=== PATIENT | male | born 1945 | race Caucasian/White ===

== ENCOUNTER 2024-04-18 19:48 | Observation (INO) | payer MEDICARE, SELFPAY ==
[2024-04-18] VITALS (7 sets, daily range): BP systolic 87–154; BP diastolic 61–108; PULSE 105–112; BMI 29.2
--- NOTE | 2024-04-18 16:03 | ED.GENMED ---
History of Present Illness
General
Chief Complaint: Dizziness
Source: patient and ambulance crew
Exam Limitations: none
Time Seen by Provider: 04/18/24 15:56
Nursing documentation reviewed up to this point in time: agreed with
History of Present Illness
History of Present Illness:
78-year-old male presents emergency department complaining of feeling lightheaded and collapsing. He states he did not lose consciousness. He was waiting for a bus near [facility]. States he has not eaten in about a week. He is
trying to lose weight.
Past History
Past History
ED Past Medical History: HTN and Psychiatric (Bipolar)
ED Past Surgical History: Other (Right parotidectomy)
Social History
Tobacco: Former smoker
Alcohol: None
Drug: None
Personal: Single
Living: alone
Review of Systems
Review of Systems
Allergies reviewed?: Yes
All Other Systems: Not applicable
Constitutional: Reports no symptoms
EENT: Reports no symptoms
Respiratory: Reports no symptoms
Cardiac: Reports syncope; Denies chest pain
ABD/GI: Reports no symptoms
: Reports no symptoms
Musculoskeletal: Reports no symptoms
Skin: Reports no symptoms
Neurological: Reports no symptoms
Endocrine: Reports no symptoms
Hematologic/Lymphatic: Reports no symptoms
Psychiatric: Reports no symptoms
Phy Exam
Physical Exam
Physical Exam:
Physical Exam
General: no apparent distress, not acutely ill
Neck: supple. no meningeal signs. normal posterior pharynx
Heart: s1/s2 regular rate and rhythm, no murmur. equal radial
pulses.
HEENT: Pupils equal round reactive to light, EOMI
Lungs: no acute respiratory distress. clear bilaterally
Abdomen: normal bowel sounds. not tender. no CVAT
Neuro: alert and oriented. no focal neurological deficits cranial nerves II through XII intact
Skin: no rash
Psychiatric: well kept. interactive and cooperative
Extremities: no edema. no calf tenderness. negative homans. good distal pulses
Course
Orders/Labs/Results
Orders:
Orders
04/18/24 15:58
Cardiac Monitoring- Treatment ONCE
Vital Signs As Directed
Frequency: Other
Weight As Directed
Frequency: Once
Comment: ZERO STRETCHER SCALE FOR ACCURATE WEIGHT
04/18/24 16:03
EKG [Electrocardiogram (*1)] Urgent
Reason for Study: Vertigo / Dizzy
EKG- Treatment ONCE
04/18/24 16:15
Complete Blood Count/With Diff Urgent
Comprehensive Metabolic Panel Urgent
Troponin I Urgent
04/18/24 16:57
0.9% Sodium Chloride 1000 ml [Nss] 1,000 ml IV BOLUS
04/18/24 19:32
Admit/Transfer Patient As Directed
Co-Sign Provider:
Level of Care: Observation services
Assign to:: Telemetry
Physician / Group: [email or web address]
Diagnosis: syncope, GLORIA, dehydration , intentional fasting
Reason for Telemetry: Syncope
Date to Stop Telemetry: 04/20/24
Time to Stop Telemetry: 11:00
04/18/24 19:33
Code Status As Directed
Resuscitation Status: Full Code
04/18/24 20:08
0.9% Sodium Chloride 1000 ml [Nss] 1,000 ml IV 120 mls/hr
Bisacodyl [Dulcolax] 10 mg RECTAL [id number] PRN
Dextrose 50%-Water [Dextrose 50% Syringe] 12.5 grams IV [id number] PRN
Docusate W/Senna [Senokot-S] 1 tablet PO BIDPRN PRN
Glucagon [GlucaGen] 1 mg IM PRN PRN
Polyethylene Glycol Powder [Miralax] 17 grams PO DAILYPRN PRN
04/18/24 20:08
Activity As Directed
Activity Level: As Tolerated
Bedside Glucose Monitoring As Directed
Frequency: AC&HS
Additional Instructions:: Change to q6h if pt on TPN, tube feeding or not eating
Intake/ Output As Directed
Frequency: Per unit guidelines
Orthostatic Vital Signs As Directed
Orthostatic VS Frequency: Daily
Comment: times 1
Pneumatic Compression Sleeves As Directed
Type: Knee high
Vital Signs As Directed
Frequency: Per unit guidelines
DX Deep Vein Thrombosis Video Routine
04/19/24 Breakfast
Regular
At Your Request: Limited Participation
Does patient need a safe tray?: No
Basic Metabolic Panel IN AM
Glycohemoglobin (HgbA1c) IN AM
04/20/24 11:00
DC Protocol for Telemetry ONCE
Abnormal Lab Results
04/18/24
16:15
WBC 13.8 H 10^3/uL
(4.8-10.8)
MPV 10.8 H fL
(7.4-10.4)
Abs Immat Gran (auto) 0.1 H 10^3/uL
(0-0.05)
Absolute Neuts (auto) 10.9 H 10^3/uL
(1.4-6.5)
Absolute Monos (auto) 0.9 H 10^3/uL
(0.1-0.6)
Immature Gran % 0.7 H %
(0-0.5)
Neutrophils % 78.7 H %
(42.2-75.2)
Lymphocytes % 12.8 L %
(20.5-51.1)
Carbon Dioxide 20 L mmol/L
(22-30)
BUN 29 H mg/dl
(9-20)
Creatinine 2.1 H mg/dL
(0.7-1.3)
Glucose 130 H mg/dl
(70-99)
04/18/24 16:15
04/18/24 16:15
Vital Signs
Initial and Last Documented VS:
Initial Vital Signs
Temp Pulse Resp BP
97.7 F 99 18 87/61
04/18/24 16:11 04/18/24 16:11 04/18/24 16:11 04/18/24 16:11
Last Documented Vital Signs
Temp Pulse Resp BP Pulse Ox
97.5 F 101 20 154/90 97
04/18/24 20:22 04/18/24 19:30 04/18/24 20:22 04/18/24 19:00 04/18/24 20:22
MDM/Problems Addressed
Differential Diagnosis Includes:
Dysrhythmia, hypovolemia, heat injury
MDM/Problems Addressed:
78-year-old male with acute renal failure, syncope.
Chronic conditions affecting care: HTN
Acute Exacerbation and/or Progression of Chronic Illness: HTN
*Pulse Oximetry
Patient hypoxic: no
*EKG
Interpreted by ED Provider?: Yes
EKG Intrepretation Date: 04/18/24
EKG Intrepretation Time: 16:04
Interpretation: normal
Comparison EKG: no comparison EKG present
Heart Rate: 100
Rate: normal
Rhythm: sinus
[place]: normal axis
Interval: normal interval
QRS Pattern: normal QRS
Ischemia: no ischemia
*Hair Dresser Interpretation
Rate: normal
Interpretation: normal
Heart Rate: 94
Rhythm: sinus
*Critical Care Note
Total Time (30-74mins, 75-104mins- exclusive of procedures): Not Applicable
Patient Management
Social determinants of health affecting care: Living situation
Discussion with other providers: Hospitalist
Escalation/DeEscalation of care consider admission/obs:
admit indicated
ED Attending Note
-
Portions of this chart may have been created with voice recognition software.� Occasional wrong word or��sound alike� substitutions may have occurred due to the inherent limitations of voice recognition software.
Discharge Plan
Departure
Patient Disposition: Admit
Date of Disposition: 04/18/24
Time of Disposition: 18:39
Admit to: Telemetry
Presentation/result/management discussed w/ accepting MD/DO: Hospitalist
Patient with high blood pressure during this ER visit?: Yes
Condition: Good
Discharge Problem:
Syncope, Acute renal failure, Hypovolemia
Interventions
Interventions:
*Risk Screen - Suicide Last Done: 04/18/24 17:12
*General Assessment Last Done: 04/18/24 17:12
*Neglect/Abuse Screening Last Done: 04/18/24 17:12
ED- Fall Risk Assessment Last Done: 04/18/24 17:12
*ED COVID-19 Vaccine History Last Done: 04/18/24 17:12
*Nursing Disposition Last Done: 04/18/24 20:01
ED- Neurological Assessment Last Done: 04/18/24 17:12
ED- Cardiac Assessment Last Done: 04/18/24 17:12
Discharge Date and Time
Discharge Date/Time: 04/18/24 20:01
[2024-04-18 16:37] LABS: % Basophils 0.8 % (0-2); % Eosinophils 0.6 % (0-6); % Immature Granulocytes 0.7 % (0-0.5); % Lymphocytes 12.8 % (20.5-51.1); % Monocytes 6.4 % (1.7-9.3); % Neutrophils 78.7 % (42.2-75.2); Absolute Basophils 0.1 10^3/uL (0-0.2); Absolute Eosinophils 0.1 10^3/uL (0-0.7); Absolute Immature Granulocytes 0.1 10^3/uL (0-0.05); Absolute Lymphocytes 1.8 10^3/uL (1.2-3.4); Absolute Monocytes 0.9 10^3/uL (0.1-0.6); Absolute Neutrophils 10.9 10^3/uL (1.4-6.5); Mean Corp Hgb Conc. 34.9 g/dL (33.0-37.0); Mean Corpuscular Hgb 29.8 pg (27.0-31.0); Mean Corpuscular Volume 85.3 fL (80.0-94.0); Mean Platelet Volume 10.8 fL (7.4-10.4); Nucleated Red Blood Cells % 0 % (-); Platelet Count 344 10^3/uL (130-400); Red Blood Cell Count 5.04 10^6/uL (4.70-6.10); Red Cell Dist. Width 13.3 % (11.5-14.5); White Blood Cell Count 13.8 10^3/uL (4.8-10.8)
[2024-04-18 17:00] LABS: Troponin I < 0.012 ng/ml
[2024-04-18 17:02] LABS: AST (SGOT) 25 U/L (17-59); Albumin 4.4 g/dl (3.5-5.0); Blood Urea Nitrogen 29 mg/dl (9-20); Calcium 9.6 mg/dl (8.4-10.2); Carbon Dioxide 20 mmol/L (22-30); Glucose 130 mg/dl (70-99); Potassium 4.3 mmol/L (3.5-5.1); Total Protein 7.3 g/dl (6.3-8.2); eGFR 31.43
[2024-04-18] MEDS: NSS 1000 IV ×2 (17:11→20:53)
[2024-04-18 17:12] LABS: ALT (SGPT) 17 U/L (0-50); Alkaline Phosphatase 52 U/L (38-126); Chloride 102 mmol/L (98-107); Sodium 136 mmol/L (135-145)
--- NOTE | 2024-04-18 19:28 | HPS.HSE ---
Family Physician
-
Family Physician: Jarrell Shahid
Chief Complaint
-
passed out
History of Present Illness
8M HX Bipolar disorder, HTN seen at ER
Evaluation of dizziness and syncope
- acute onset
- Lightheadedness with standing
- almost passed out denied passing out
- Reports intentional fasting for 1 week to loose wt
- BG [employer] FELLOW 150
Per recodrs;
had syncope at [facility]
Denied trauma
lower himself to the ground when he felt dizzy
Medical History
Past Medical History
Past Medical History: Reports HTN and Psychiatric (bipolar)
Past Surgical History: Reports None
Social History
Tobacco: Former Smoker
Alcohol: None
Personal: Single
Family History
Family History: Not pertinent
Allergies / Home Medications
Allergies reflects when Allergies were last updated in [employer].
Home Medications with original date entered in [employer]
Allergy/Medication List:
Allergies
Allergy/AdvReac Type Severity Reaction Status Date / Time
Sulfa (Sulfonamide Allergy convulsions Verified 08/22/22 11:57
Antibiotics)
Home Medications
aspirin 81 mg tablet,delayed release (Hoa Low Dose Aspirin) 81 mg PO DAILY 08/15/15
hbwcnoty-voy-xngxe acid 0.4 mg-lycopene 300 mcg-lutein 250 mcg tablet (Centrum Silver) 1 tab PO DAILY 08/15/15
bacitracin zinc 500 unit/gram topical ointment 0 applic topical TID ##0 08/23/15
cefuroxime axetil 500 mg tablet 500 mg PO BID #14 tabs 08/23/15
prednisone 10 mg tablet 10 mg PO DAILY #21 tabs 08/23/15
Review of Systems
-
Constitutional: Reports No Symptoms
EENT: Reports No Symptoms
Respiratory: Reports No Symptoms
Cardiac: Reports No Symptoms
Abdomen/GI: Reports No Symptoms
: Reports No Symptoms
Musculoskeletal: Reports No Symptoms
Skin: Reports No Symptoms
Neurological: Reports See HPI, Dizzy and Other (syncope )
Endocrine: Reports No Symptoms
Hematologic/Lymphatic: Reports No Symptoms
Psych: Reports No Symptoms
Physical Exam
Vital Signs
Vital Signs
Temp Pulse Resp BP Pulse Ox
97.7 F 103 15 154/90 96
04/18/24 16:11 04/18/24 19:00 04/18/24 19:00 04/18/24 19:00 04/18/24 19:00
Physical Exam
General: Well Developed and No Apparent Distress
HEENT: NormoCephalic and Moist mucous membranes
Respiratory: Clear; No Wheezes, Rales or Rhonchi
Cardiac: S1/S2 and Regular Rhythm
Breast: Deferred by me
GI: Soft, Non Tender, Non Distended and Normal Bowel Sounds
Genito-urinary: Deferred by me
Musculoskeletal: No Edema
Skin: Warm and Dry
Neuro: AO x 3
Psych: Calm
Laboratory Results
-
04/18/24 16:15
04/18/24 16:15
Laboratory Results
Total Bilirubin 1.0 mg/dl (0.2-1.3) 04/18/24 16:15
AST 25 U/L (17-59) 04/18/24 16:15
ALT 17 U/L (0-50) 04/18/24 16:15
Alkaline Phosphatase 52 U/L (38-126) 04/18/24 16:15
Troponin I < 0.012 ng/ml 04/18/24 16:15
Data Reviewed
-
Medical Tests (Nuc Med, Echo, EKG etc): Report Reviewed by me
Lab Data: Labs Reviewed by me
Impression/Plan
-
Reviewed VS: Afebrile tachycardic 100s BP 87/61 --> 155/90 RR 15 POx 96
Data
WCC 13.8
CO2 20
BUN 29
Cr 2.1- baseline 1.6
eGFR 31
BG 130
NEG TPNI
EKG
NORMAL SINUS RHYTHM
NORMAL ECG
WHEN COMPARED WITH ECG OF 22-AUG-2022 11:59,
NO SIGNIFICANT CHANGE WAS FOUND
No PRIOR hospitalist admission:
ASSESSMENT & PLAN
GLORIA due to dehydration and hypovolemia from intentional fasting for few days
Syncope due to significant ortho hypotension
Prior HX Cr 1.6 - ? CKD or recurrent GLORIA due to fasting
- monitor BG , Hypoglycemic protocol PRN
- Nl EKG, NEG TPNI
- BG [employer] FELLOW 150 , at ER 130
- IVF
- f/u postural VSS
- Trend BMP daily
- fall precaution
Essential HTN
- Pending Rx reconciliation
HX Bipolar disorder
- Pending Rx reconciliation
DVT Px: SCD
Code: full
Obs TLM
--- NOTE | 2024-04-18 20:53 | PTCARENOTE ---
Receive pt from ER. Pt alert oriented X3, cooperative and pleasant. Pt assisted X1 to bed, steady. Pt oriented to the room, call bay within reach. Pt denies lightheaded, SOB, chest pain or dizziness. Pt is on NSR with tachycardia on telemonitor.
VSS (T=97.5, ZF=328, RR=20, JF=064/91, SpO2=97% on RA). IVFs infusing as per order. Will continue to monitor the pt.
[2024-04-18 21:09] LABS: Glucose - Point of Care 114 mg/dl (70-99)
[2024-04-19 03:25] VITALS: BP 145/86
[2024-04-19] MEDS: NSS 1000 IV (05:05)
[2024-04-19 06:04] LABS: Blood Urea Nitrogen 31 mg/dl (9-20); Calcium 8.9 mg/dl (8.4-10.2); Carbon Dioxide 23 mmol/L (22-30); Chloride 107 mmol/L (98-107); Estimated Creatinine Clearance 44 ml/min; Glucose 89 mg/dl (70-99); Potassium 4.5 mmol/L (3.5-5.1); Sodium 137 mmol/L (135-145); eGFR 47.06
[2024-04-19 07:13] LABS: Glucose - Point of Care 97 mg/dl (70-99)
[2024-04-19 07:30] VITALS: BP 150/89
[2024-04-19 08:32] VITALS: BP 162/91; BP 171/91; BP 178/91; PULSE 101; PULSE 103; PULSE 104
[2024-04-19 08:32] LABS: % Basophils 0.5 % (0-2); % Eosinophils 0.7 % (0-6); % Immature Granulocytes 0.3 % (0-0.5); % Monocytes 8.6 % (1.7-9.3); % Neutrophils 72.9 % (42.2-75.2); Absolute Basophils 0.1 10^3/uL (0-0.2); Absolute Eosinophils 0.1 10^3/uL (0-0.7); Absolute Neutrophils 8.5 10^3/uL (1.4-6.5); Hemoglobin 13.7 g/dL (13.0-18.0); Mean Corp Hgb Conc. 35.1 g/dL (33.0-37.0); Mean Corpuscular Hgb 30.1 pg (27.0-31.0); Mean Corpuscular Volume 85.7 fL (80.0-94.0); Mean Platelet Volume 11.2 fL (7.4-10.4); Nucleated Red Blood Cells % 0 % (-); Platelet Count 301 10^3/uL (130-400); Red Blood Cell Count 4.55 10^6/uL (4.70-6.10); Red Cell Dist. Width 13.6 % (11.5-14.5); White Blood Cell Count 11.7 10^3/uL (4.8-10.8)
--- NOTE | 2024-04-19 10:12 | W.PN.HOSP.TC ---
Addendum entered and electronically signed by Sergio Ledesma MD 04/19/24 11:14:
Per RN med rec is accurate, patient is currently not taking any meds for bipolar
Addendum entered and electronically signed by Sergio Ledesma MD 04/19/24 11:12:
Patient is currently doing better. Denies any complaints. Will discharge patient home
Time of discharge 36 minutes
Original Note:
Today's Communication/Plan
-
monitor vitals
see plan
now appears back to baseline
creatinine improving
Patient to get repeat BMP with primary care outpatient
Possible discharge today
Assessment / Plan
Assessment / Plan
General: Well Developed and No Apparent Distress
HEENT: NormoCephalic and Moist mucous membranes
Respiratory: Clear; No Wheezes, Rales or Rhonchi
Cardiac: S1/S2 and Regular Rhythm
GI: Soft, Non Tender, Non Distended and Normal Bowel Sounds
Musculoskeletal: No Edema
Skin: Warm and Dry
Neuro: AO x 3
Psych: Calm
Presyncope (Never passed out) likely secondary to dehydration given recent fasting without much fluid intake
Orthostatics this morning negative
Currently feeling back to baseline
Will discharge patient home
No chest pain, shortness of
- Nl EKG, NEG TPNI
- fall precaution
Renal insufficiency likely secondary to dehydration
Per patient he does have history of chronic kidney disease however unknown baseline creatinine.
Creatinine improving. Patient denies any dysuria
Essential HTN
HX Bipolar disorder
- Pending Rx reconciliation
DVT Px: SCD
Code: full
Anticipated Discharge: Today
Subjective/Interval History
-
Date of Service: April 19, 2024
denies chest pain, shortness of breath. Denies dizziness
Objective Data
-
Labs:
Laboratory Results
04/19/24 04/19/24
04:44 07:40
WBC 11.7 H Cancelled
Hgb 13.7 Cancelled
Hct 39.0 Cancelled
Plt Count 301 Cancelled
Sodium 137
Potassium 4.5
Chloride 107
Carbon Dioxide 23
BUN 31 H
Creatinine 1.5 H
Glucose 89
Calcium 8.9
Vital Signs:
Vital Signs
Temp Pulse Resp BP Pulse Ox
97.6 F 83 18 150/89 95
04/19/24 07:30 04/19/24 07:30 04/19/24 07:30 04/19/24 07:30 04/19/24 07:30
I&O
04/18/24 04/19/24 04/20/24
06:59 06:59 06:59
Intake Total 1240 / 1240
Balance 1240 / 1240
[2024-04-19 11:04] VITALS: BP 150/82
--- NOTE | 2024-04-19 11:11 | W.DCSUMMARY ---
Discharge Summary
Discharge Data
Date of Admission: 04/18/24
Date of Discharge: 04/19/24
-
Pending Results: No
Hospital Course
78-year-old male with past medical history of bipolar disease, hypertension, suspected CKD came to the hospital with presyncope which was likely thought was secondary to dehydration due to poor oral intake. Patient was not orthostatic prior to
discharge. Patient's symptoms markedly improved after fluid resuscitation. Patient did had renal insufficiency which improved with fluids. Patient instructed to get repeat BMP outpatient with his primary care provider. Once patient symptoms
improved, he was then discharged home with instructions to follow-up with all his physicians outpatient.
Discharge Plan
-
Patient Disposition: Home (Routine Discharge)
Discharge Diagnosis/Procedures: Presyncope likely secondary to dehydration
Renal insufficiency secondary to poor oral intake and dehydration
Diet: As tolerated
Activity: As tolerated
Driving Restrictions: As prior to admission
Bathing Restrictions: None
Blood Work: BMP later this week or next week with primary care provider
Referrals:
Jarrell Shahid DO [Family Provider] - in less than 1 week
Prescriptions:
Continued
aspirin 81 mg Tablet,Delayed Release (Dr/Ec)
81 mg PO DAILY PRN (Reason: lower risk of heart attack)
Centrum Men 8 mg iron- 200 mcg-600 mcg Tablet
1 tab PO DAILY
saw palmetto tablet
2 tab PO DAILY
Discharge Orders:
Discharge Patient (As Directed); Ordered 04/19/24
Ordered By: Sergio Ledesma
Discharge Date and Time
Print Language: AMHARIC
[2024-04-19 11:51] LABS: Glucose - Point of Care 89 mg/dl (70-99)
--- NOTE | 2024-04-19 12:25 | CM ---
Alert awake oriented patient who lives alone with his cat.He lives in an apartment with an elevator. He is independent in all activities of daily living.He was offered VN he declined need.He uses [employer] and bus transportation to get to all needs.He
said he would notify son he was dc.He was notified on [facility] letter . He declined to sign letter. Copy on chart.No adaptive devices.
No VN hx / No SNF history
Pharmacy [facility] [address]
PCP DR Shahid
PLAN Home Declined VN
[2024-04-20 08:53] LABS: Glycohemoglobin (HgbA1c) 5.8 % (4.0-5.6)
== END 2024-04-19 13:16 | disposition home or self-care (01) ==
LOC: 4 EAST ACU 19:48
PROVIDERS: ADMITTING PHYSICIAN Internal Medicine; ATTENDING PHYSICIAN Internal Medicine; EMERGENCY PHYSICIAN Emergency Medicine; FAMILY PHYSICIAN Family Medicine
DX: E86.0 Dehydration (principal); I95.1 Orthostatic hypotension; E86.1 Hypovolemia; R42 Dizziness and giddiness; F31.9 Bipolar disorder, unspecified; I12.9 Hypertensive chronic kidney disease with stage 1 through stage 4 chronic kidney disease, or unspecified chronic kidney disease; N17.9 Acute kidney failure, unspecified; Z88.2 Allergy status to sulfonamides; Z79.52 Long term (current) use of systemic steroids; Z87.891 Personal history of nicotine dependence; Z91.148 Patient's other noncompliance with medication regimen for other reason
CPT/HCPCS: 80048; 80053; 82962; 83036; 84484; 85025; 93005; 96360; 99285; G0378

== ENCOUNTER → 2024-05-11 07:26 | Outpatient (REF) | payer MEDICARE, SELFPAY ==
[2024-05-11 10:18] LABS: % Basophils 1.3 % (0-2); % Immature Granulocytes 0.4 % (0-0.5); % Lymphocytes 25.8 % (20.5-51.1); % Monocytes 9.3 % (1.7-9.3); % Neutrophils 57.2 % (42.2-75.2); Absolute Basophils 0.1 10^3/uL (0-0.2); Absolute Eosinophils 0.5 10^3/uL (0-0.7); Absolute Lymphocytes 2.1 10^3/uL (1.2-3.4); Absolute Monocytes 0.8 10^3/uL (0.1-0.6); Absolute Neutrophils 4.7 10^3/uL (1.4-6.5); Hematocrit 43.8 % (39.0-52.0); Hemoglobin 14.8 g/dL (13.0-18.0); Mean Corp Hgb Conc. 33.8 g/dL (33.0-37.0); Mean Corpuscular Volume 88.8 fL (80.0-94.0); Nucleated Red Blood Cells % 0 % (-); Platelet Count 332 10^3/uL (130-400); Red Blood Cell Count 4.93 10^6/uL (4.70-6.10); Red Cell Dist. Width 13.6 % (11.5-14.5); White Blood Cell Count 8.3 10^3/uL (4.8-10.8)
[2024-05-11 10:51] LABS: ALT (SGPT) 20 U/L (0-50); AST (SGOT) 30 U/L (17-59); Albumin 4.4 g/dl (3.5-5.0); Alkaline Phosphatase 50 U/L (38-126); Blood Urea Nitrogen 24 mg/dl (9-20); Calcium 9.5 mg/dl (8.4-10.2); Carbon Dioxide 29 mmol/L (22-30); Chloride 106 mmol/L (98-107); Glucose 99 mg/dl (70-99); HDL Cholesterol 55 mg/dl; LDL Cholesterol, Calculated 149 mg/dl; Potassium 4.2 mmol/L (3.5-5.1); Sodium 141 mmol/L (135-145); Total Cholesterol 221 mg/dl (50-199); Total Protein 7.6 g/dl (6.3-8.2); Triglyceride 89 mg/dl (10-149); Very Low Density Lipoprotein 17 mg/dl (0-30); eGFR 51.13
[2024-05-11 16:49] LABS: PSA, Total - Screen 3.25 ng/ml (0.0-4.0)
== END ==
LOC: HWRAD 07:26
PROVIDERS: ATTENDING PHYSICIAN Family Medicine
DX: R10.84 Generalized abdominal pain (principal); I10 Essential (primary) hypertension; E86.0 Dehydration; Z12.5 Encounter for screening for malignant neoplasm of prostate
CPT/HCPCS: 36415; 76700; 80053; 80061; 85025; G0103

== ENCOUNTER → 2025-07-25 10:40 | Outpatient (REF) | payer MEDICARE, SELFPAY ==
[2025-07-25 12:13] LABS: Hematocrit 41.8 % (39.0-52.0); Hemoglobin 14.4 g/dL (13.0-18.0); Mean Corp Hgb Conc. 34.4 g/dL (33.0-37.0); Mean Corpuscular Volume 88.0 fL (80.0-94.0); Nucleated Red Blood Cells % 0 % (-); Platelet Count 315 10^3/uL (130-400); Red Cell Dist. Width 13.5 % (11.5-14.5)
[2025-07-25 12:48] LABS: ALT (SGPT) 23 U/L (0-50); AST (SGOT) 30 U/L (17-59); Albumin 4.5 g/dl (3.5-5.0); Alkaline Phosphatase 49 U/L (38-126); Blood Urea Nitrogen 18 mg/dl (9-20); Calcium 8.9 mg/dl (8.4-10.2); Carbon Dioxide 27 mmol/L (22-30); Chloride 105 mmol/L (98-107); Glucose 97 mg/dl (70-99); HDL Cholesterol 51 mg/dl; LDL Cholesterol, Calculated 83 mg/dl; Potassium 4.3 mmol/L (3.5-5.1); Sodium 138 mmol/L (135-145); Total Protein 7.5 g/dl (6.3-8.2); Very Low Density Lipoprotein 16 mg/dl (0-30); eGFR > 60.00
[2025-07-25 13:15] LABS: PSA, Total - Screen 2.90 ng/ml (0.0-4.0)
== END ==
LOC: HWLAB 10:40
PROVIDERS: ATTENDING PHYSICIAN Family Medicine
DX: I10 Essential (primary) hypertension (principal); E78.2 Mixed hyperlipidemia; Z12.5 Encounter for screening for malignant neoplasm of prostate
CPT/HCPCS: 36415; 80053; 80061; 85025; G0103